=== PATIENT | male | born 1995 | race Caucasian/White ===

== ENCOUNTER 2023-09-30 14:15 | Outpatient (CLI) | payer MEDICAID ==
--- NOTE | 2023-09-30 18:15 | XRAY Report ---
PROCEDURE: Thoracic Spine 2V INDICATIONS: BACK PAIN, THORACIC REGION TECHNIQUE: 2 views of the thoracic spine were acquired. COMPARISON: None. FINDINGS: Bones: Bilateral [place] rods spanning from T3 through L2. No evidence of hardware failure or loo sening. No fractures or dislocations. No suspicious bony lesions. 12 pairs of ribs are noted, and a ppear intact where visualized. Soft tissues: No paravertebral stripe thickening. IMPRESSION: No acute bony abnormality. Expected appearance of orthopedic surgical hardware. Reviewed by: Jose Granados MD on 09/30/2023 6:13 PM PDT Approved by: Jose Granados MD on 09/30/2023 6:13 PM PDT Station ID: [id number]
== END 2023-09-30 18:12 | disposition home or self-care (01) ==
LOC: DI.N 14:15
PROVIDERS: ATTEND Family Medicine
DX: M54.6 Pain in thoracic spine (principal)